=== PATIENT | female | born 1970 | race Caucasian/White ===

== ENCOUNTER → 2017-07-30 | Emergency (ER) | payer OTHER ==
[~2017-07-30] VITALS: Ht 170.2 cm; Wt 64.4 kg
== END | disposition home or self-care (01) ==
LOC: ER 09:49
DX: K52.9 Noninfective gastroenteritis and colitis, unspecified (principal)

== ENCOUNTER 2019-10-04 09:12 | Emergency (ER) | payer OTHER ==
[~2019-10-04] VITALS: Ht 167.6 cm; Wt 66.7 kg
[2019-10-04] MEDS ORDERED: TESSALON PERLE100 M1 PO (13:25)
[2019-10-04] MEDS ORDERED: AIRBORNE EFFER1 EACH PO (13:25)
[2019-10-04] MEDS ORDERED: MUCINEX DM ER1 EAC1 PO (13:25)
== END 2019-10-04 13:42 | disposition home or self-care (01) ==
LOC: ER 09:12
DX: J06.9 Acute upper respiratory infection, unspecified (principal)

== ENCOUNTER 2023-07-28 17:59 | Emergency (ER) | payer OTHER ==
[~2023-07-28] VITALS: Ht 167.6 cm; Wt 59.9 kg
[~2023-07-28 17:59] MED LIST: AIRBORNE EFFER1 EACH PO; MUCINEX DM ER1 EAC1 PO; TESSALON PERLE100 M1 PO
[2023-07-28 21:44] LABS: HEMATOCRIT 40.6 % (36.0-45.00); MEAN CELL VOLUME 85.8 fL (80.00-100.00); MEAN CORPUSCULAR HEMOGLOBIN 29.6 pg (27.00-32.0); MEAN CORPUSCULAR HGB CONC 34.4 g/dl (32.0-36.0); PLATELET COUNT 302 K/uL (150-450); RED BLOOD COUNT 4.73 M/uL (4.00-6.00); RED CELL DISTRIBUTION WIDTH 14.1 % (11.5-14.5)
== END 2023-07-28 22:29 | disposition home or self-care (01) ==
LOC: ER 18:00
PROVIDERS: General Practice
DX: K29.70 Gastritis, unspecified, without bleeding (principal); Z20.822 Contact with and (suspected) exposure to COVID-19
CPT/HCPCS: 36415; 96365; 99283; J3490